=== PATIENT | male | born 1990 | race Caucasian/White ===

== ENCOUNTER 2016-11-19 16:50 | Inpatient (IN) | payer BC, OTHER ==
[~2016-11-19] VITALS: Ht 180.3 cm; Wt 62.6 kg
[2016-11-19] MEDS ORDERED: ACETAMINOPHEN 325 MG TABLET PO PRN (17:30)
[2016-11-19] MEDS ORDERED: DICYCLOMINE HCL 20 MG TABLET PO PRN (17:30)
[2016-11-19] MEDS ORDERED: ONDANSETRON 4 MG/2 ML VIAL IM PRN (17:30)
[2016-11-19] MEDS ORDERED: MAGNESIUM HYDROXIDE 30 ML LIQUID UDC PO PRN (17:30)
[2016-11-19] MEDS ORDERED: MIRALAX 17 GM POWD.PACK PO PRN (17:30)
[2016-11-19] MEDS ORDERED: IBUPROFEN 400 MG TABLET PO PRN (17:30)
[2016-11-19] MEDS ORDERED: LOPERAMIDE HCL 2 MG CAPSULE PO PRN ×2 (17:30)
[2016-11-19] MEDS ORDERED: MAG HYDROX/AL HYDROX/SIMETH 30 ML LIQUID UDC PO PRN (17:30)
[2016-11-19] MEDS ORDERED: LORAZEPAM 1 MG TABLET PO PRN ×2 (17:30)
[2016-11-19] MEDS ORDERED: LORAZEPAM 2 MG/1 ML VIAL IM PRN (17:30)
[2016-11-19] MEDS ORDERED: CLONIDINE HCL 0.1 MG TABLET PO PRN (17:30)
[2016-11-19 18:00] VITALS: BP 119/74
[2016-11-19] MEDS ORDERED: THIAMINE HCL 200 MG/2 ML VIAL IM ONE (18:00)
--- NOTE | 2016-11-19 18:00 | NUR ---
ADMISSION Pt 26 y/o male admitted for etoh dependence. Pt lives at home with family. Pt alert and oriented to name, place, and time. Perrla. Skin warm and moist to touch. Respirations even and unlabored. Bilateral hand tremors noted. Pt appears with flushed face. Pt anxious during assessment. Pt was seen by Dr. Monzon and will start on a 5 day ativan taper on 11/20/16. Pt with initial ciwa=6. pt states this is his first time in detox and has never been to a treatment center. Pt states has no PCP. Oriented pt to room and unit. Bed on lowest position with side rails x2 up for safety. Call light within reach. substance hx: etoh ( beer) oral and has 6-12 bottles daily x 2.5 years. Last drink was 6 bottles this morning on 11/19/16 medical hx: Pt denies any sz history; appendicitis 2001 tx hx: Pt states this is his first time being in detox and has never been to a treatment center. Addendum: 11/19/16 at 1907 by HERNANDEZ CAICEDO RN skin clear.
[2016-11-19] MEDS: ONDANSETRON ODT 4 MG TAB.RAPDIS SL PRN (18:18)
--- NOTE | 2016-11-19 18:18 | NUR ---
PRN Pt states he feels nauseous. Zofran po prn per MD order given and tolerated well.
--- NOTE | 2016-11-19 18:18 | NUR ---
PRN Pt with ciwa=6. Ativan 1mg po prn per MD order given and tolerated well.
--- NOTE | 2016-11-19 19:17 | NUR ---
PRN EVAL ciwa=2. Pt observed in room on bed awake. No distress noted at this time.
--- NOTE | 2016-11-19 19:18 | NUR ---
PRN EVAL Pt states denies any nausea at this time.
--- NOTE | 2016-11-19 19:30 | NUR ---
START OF SHIFT Pt 26 y/o male admitted for ETOH dependency. Pt is A/O X 4.Skin is intact,warm and moist to touch. Allergic to Sulfa; full code; regular diet. Respirations even and unlabored. Pt was seen by Dr. Monzon and will start on a 5 day Ativan taper on 11/20/16. Last CIWA 2. All needs met. Bed on lowest position and locked,with side rails x2 up for safety. Call light within reach. Will continue to monitor.
[2016-11-19 19:54] LABS: *AMPHETAMINE, URINE NEGATIVE (NEGATIVE); *BARBITURATE, URINE NEGATIVE (NEGATIVE); *CANNABINOID, URINE NEGATIVE (NEGATIVE); *COCCAINE, URINE NEGATIVE (NEGATIVE); *OPIATE, URINE NEGATIVE (NEGATIVE); *PHENCYCLIDINE SCREEN,URINE NEGATIVE (NEGATIVE)
[2016-11-19 22:28] LABS: BASOPHILS % (AUTO) 0.5 % (0.0-2.0); EOSINOPHILS # (AUTO) 0.2 K/uL (0.0-0.7); EOSINOPHILS % (AUTO) 3.3 % (0.0-7.0); HEMATOCRIT 45.3 % (40-50); HEMOGLOBIN 15.4 G/DL (14.0-18.0); LYMPHOCYTES # (AUTO) 2.4 K/UL (0.8-4.8); MEAN CORPUSCULAR HEMOGLOBIN 32.3 UUG (27.0-31.0); MEAN CORPUSCULAR HGB CONC 34 g/dL (32.0-37.0); MEAN CORPUSCULAR VOLUME 95.2 FL (82.0-92.0); MONOCYTES # (AUTO) 0.6 K/UL (0.1-1.30); MONOCYTES % (AUTO) 9.3 % (0.0-11.0); NEUTROPHILS # (AUTO) 3.8 K/UL (1.8-8.9); NEUTROPHILS % (AUTO) 52.9 % (38.5-71.5); PLATELET COUNT (AUTO) 232 K/UL (150-450); RED BLOOD CELL COUNT(AUTO) 4.76 MIL/UL (4.7-6.1)
[2016-11-19 22:34] LABS: ETHANOL < 3 MG/DL (0-0)
[2016-11-19 22:38] LABS: ALANINE AMINOTRANSFERASE 17 U/L (16-63); ALKALINE PHOSPHATASE 66 U/L (50-136); AMYLASE 41 U/L (25-115); ASPARTATE AMINOTRANSFERASE 21 U/L (15-37); BILIRUBIN,TOTAL 0.6 mg/dL (0.2-1.0); CARBON DIOXIDE 34 mmol/L (21-32); CHLORIDE 100 mmol/L (98-107); CREATININE 1.1 mg/dL (0.6-1.3); GLUCOSE 84 mg/dL (74-106); LIPASE 188 U/L (73-393); POTASSIUM 4.8 mmol/L (3.5-5.1); TOTAL PROTEIN, SERUM 7.1 g/dL (6.4-8.2); UREA NITROGEN, BLOOD 16 mg/dL (7-18)
[2016-11-19 22:58] LABS: THYROID STIMULATING HORMONE 5.449 mIU/mL (0.358-3.740)
[2016-11-20] VITALS: BP 119/75
[2016-11-20 04:00] VITALS: BP 122/63
--- NOTE | 2016-11-20 06:50 | NUR ---
END OF SHIFT Pt 26 y/o male admitted for Etoh dependency. Pt is A/O X 4.Skin is intact,warm and moist to touch. Allergic to Sulfa; full code; regular diet. Respirations even and unlabored. Pt was seen by Dr. Monzon and will start on a 5 day Ativan taper on 11/20/16. Last CIWA 1.No PRN meds given.Pt slept 8 hrs; fluid intake was 500 mls,voided x 2. Bed on lowest position with side rails x2 up for safety. Call light within reach. Will continue to monitor
--- NOTE | 2016-11-20 07:03 | NUR ---
Start of Shift Notes: Received patient in his room. Alert and oriented x 4. Able to make his needs known. Respirations even and unlabored. No SOB noted. Skin warm and dry to touch. Abdomen soft and non-distended with (+) BS in all 4 quadrants. No complains of N/V/D or constipation noted. Bladder non-distended. No complains of dysuria noted. Voids independently. Ambulatory ad papo with steady gait. Patient is a 26 year old male admitted for ETOH dependence who was placed on a 5-day Ativan taper as ordered which will be starting today. Has past medical hx of appendicitis. Allergic to sulfa and apples. FULL CODE. Regular diet. On fall and seizure precautions. Educated patient on his current plan of care and his medication regimen. Encouraged oral fluid intake and encouraged group participation to learn new skills to prevent relapse. Will continue to monitor closely.
[2016-11-20 08:00] VITALS: BP 147/78
[2016-11-20] MEDS: LORAZEPAM 1 MG TABLET PO SCH ×4 (08:38→20:46)
[2016-11-20] MEDS: ONDANSETRON ODT 4 MG TAB.RAPDIS SL PRN (08:38)
[2016-11-20] MEDS: THIAMINE HCL 100 MG TABLET PO SCH (08:38)
[2016-11-20] MEDS: MULTIVITAMINS,THERAPEUTIC TABLET PO SCH (08:38)
[2016-11-20] MEDS: FOLIC ACID 1 MG TABLET PO SCH (08:38)
--- NOTE | 2016-11-20 08:38 | NUR ---
Zofran 4 mg ODT given: Patient noted with complain of intermittent nausea. CIWA 12. Medicate patient with Zofran 4 mg ODT as ordered. 1st dose of taper initiated at this time.
[2016-11-20] MEDS ORDERED: TUBERCULIN,PURIF.PROT.DERIV. 5 TU/0.1 ML TEST ID ONE (09:00)
--- NOTE | 2016-11-20 09:38 | NUR ---
Re-assessment: Per patient, PRN Zofran was effective in relieving nausea.
--- NOTE | 2016-11-20 10:51 | NUR ---
Zofran 4 mg IM given: Patient noted with complain of intermittent nausea with dry heaving after administration of Zofran 4 mg ODT. Per , OK to give patient IM Zofran 4 mg. Will monitor for effectiveness.
--- NOTE | 2016-11-20 11:21 | NUR ---
Re-assessment: Per patient, Zofran 4 mg IM was effective in reducing nausea.
--- NOTE | 2016-11-20 11:21 | NUR ---
Re-assessment: Per patient, PRN Zofran IM was effective in reducing patient's nausea.
[2016-11-20 12:00] VITALS: BP 103/67
--- NOTE | 2016-11-20 15:32 | NUR ---
Therapist encouraged client to participate in daily group therapy, and explained some of the benefits and discussed the times of group. Client stated he would see how he was feeling.
[2016-11-20 16:00] VITALS: BP 140/70
--- NOTE | 2016-11-20 18:42 | NUR ---
End of Shift Notes: Patient is a 26 year old male admitted for ETOH dependence who was placed on a 5-day Ativan taper as ordered. No adverse reactions noted. First dose of taper was initiated today at 0900. Tolerated well. Has past medical hx ofappendicitis, Prior to admission, patient was using 6-12 bottles of beer every for the past 2.5 years. VS monitored closely. No significant abnormalities noted. Withdrawal symptoms were closely monitored. Patient presented with nausea, anxiety, fine tremors, facial flushing, chills, and hot flashes. Initial CIWA 12, Last CIWA 4. Per patient, Ativan has been helping him with his withdrawal symptoms. Patient was medicated with Zofran 4 mg ODT at 0938 with help after 1 hour, then at 1051, patient was again medicated with Zofran 4 mg IM as per MD Aggarwal order with help after 1 hour. Compliant with care and treatment. Participated in group. Encouraged to socialize with his peers. Oral fluids encouraged. All needs met and attended. Consumed 100% of each meal, intake 1210cc, void x 2 and BM x 1. Will continue to monitor closely.
[2016-11-20 20:00] VITALS: BP 120/83
--- NOTE | 2016-11-20 20:00 | NUR ---
Start of Shift Note: Report received from day shift nurse. Pt is a 26yo male admitted on 11/19/16 for medically-supervised withdrawal from ETOH. Pt reports drinking 6-12 bottles beer daily for 2.5 years. Pt is on a 5-day Ativan taper. Pt received with last CIWA=4, and PRN Zofran PO and IM were given during day shift. Pt reports allergy to sulfa and apples, full code status, and is on a regular diet. Pt reports PMHx: appendicitis (2001). Pt received in room, noted with flushed face, and reports tremor, diaphoresis, anxiety and headache. Bed is in low position and locked, side rails up x2, call light within reach. Will continue to monitor.
[2016-11-20] MEDS: diphenhydrAMINE 50 MG CAPSULE PO PRN (20:46)
--- NOTE | 2016-11-20 20:47 | NUR ---
PRN Benadryl: Patient complains of inability to sleep. Administered PRN Benadryl as ordered. Will continue to monitor. Addendum: 11/21/16 at 0651 by CHANA CARRANZA RN Medication re-assessed at end of shift.
[2016-11-21] VITALS: BP 116/66
--- NOTE | 2016-11-21 | NUR ---
CIWA Deferred: CIWA deferred for sleep. V/S stable. All safety precautions are in place. Will continue to monitor. Addendum: 11/21/16 at 0223 by CHANA CARRANZA RN Amended: Links added.
[2016-11-21 04:00] VITALS: BP 117/78
--- NOTE | 2016-11-21 04:00 | NUR ---
CIWA Deferred: CIWA assessment deferred for sleep. V/S stable. All safety precautions are in place. Will continue to monitor. Addendum: 11/21/16 at 0521 by CHANA CARRANZA RN Amended: Links added.
--- NOTE | 2016-11-21 06:51 | NUR ---
End of Shift Note: Pt is a 26yo male admitted to [facility] on 11/19/16 for medically-supervised withdrawal from ETOH. Pt reports PMHx: appendicitis (2001). Pt reports allergy to sulfa and apples. Pt is full code status. Pt is on a regular diet. Pt reports drinking 6-12 bottles beer daily for 2.5 years. Pt continues on a 5-day Ativan taper. Scheduled medication regime effectively managed s/s of withdrawal this shift. Last CIWA=6 at 20:00. V/S stable throughout shift. PRN Benadryl was given for inability to sleep, which was effective as pt slept 8 hours. Total fluid intake this shift: 355 ml; output: urine x 2 and BM x 0. Pt is currently in bed, all needs have been attended and met. Pt endorsed to day shift nurse.
--- NOTE | 2016-11-21 07:05 | NUR ---
Start of Shift Notes: Received patient in his room. Alert and oriented x 4. Able to make his needs known. Respirations even and unlabored. No SOB noted. Skin warm and dry to touch. Abdomen soft and non-distended with (+) BS in all 4 quadrants. No complains of N/V/D or constipation noted. Bladder non-distended. No complains of dysuria noted. Voids independently. Ambulatory ad papo with steady gait. Patient is a 26 year old male admitted for ETOH dependence who was placed on a 5-day Ativan taper. No adverse reactions noted. Has past medical hx of appendicitis. Allergic to sulfa and apples. FULL CODE. Regular diet. On fall and seizure precautions. Educated patient on his current plan of care and his medication regimen. Encouraged oral fluid intake and encouraged group participation to learn new skills to prevent relapse. Will continue to monitor closely.
[2016-11-21 08:00] VITALS: BP 127/78
[2016-11-21 08:11] LABS: HEPATITIS B SURFACE AG Negative (Negative)
[2016-11-21] MEDS: FOLIC ACID 1 MG TABLET PO SCH (08:52)
[2016-11-21] MEDS: MULTIVITAMINS,THERAPEUTIC TABLET PO SCH (08:52)
[2016-11-21] MEDS: THIAMINE HCL 100 MG TABLET PO SCH (08:52)
[2016-11-21] MEDS ORDERED: LORAZEPAM 1 MG TABLET PO SCH (09:00)
[2016-11-21 12:00] VITALS: BP 121/81
[2016-11-21] MEDS: LORAZEPAM 1 MG TABLET PO SCH ×3 (12:42→20:50)
--- NOTE | 2016-11-21 12:46 | NUR ---
Taper modified: Patient's taper was modified by MD Monzon as ordered. Patient will be receiving Ativan 1 mg PO QID today.
[2016-11-21 16:00] VITALS: BP 100/56
--- NOTE | 2016-11-21 16:53 | NUR ---
Client was encouraged by therapist to participate in daily psychotherapy group sessions. Client related that he would try to attend the next meeting.
--- NOTE | 2016-11-21 18:49 | NUR ---
End of Shift Notes: Patient is a 26 year old male admitted for ETOH dependence who was placed on a modified 4-day Ativan taper as ordered. No adverse reactions noted. Tolerated well. Has past medical hx ofappendicitis, Prior to admission, patient was using 6-12 bottles of beer every for the past 2.5 years. VS monitored closely. No significant abnormalities noted. Withdrawal symptoms were closely monitored. Patient presented with anxiety, fine tremors, facial flushing, chills, and hot flashes. Initial CIWA 6, Last CIWA 3. Per patient, Ativan has been helping him with his withdrawal symptoms. Taper was modified by MD today. Compliant with care and treatment. Participated in group. Encouraged to socialize with his peers. Oral fluids encouraged. All needs met and attended. Will continue to monitor closely.
[2016-11-21 20:00] VITALS: BP 108/62
--- NOTE | 2016-11-21 20:00 | NUR ---
Start of Shift Note: Report received from day shift nurse. Pt is a 26 Y/O male admitted on 11/19/16 for medically-supervised withdrawal from ETOH, and reported drinking 6-12 bottles beer daily for 2.5 years. Pt is on a 4-day Ativan taper. Pt received with last CIWA=3, and no PRN medications were given during day shift. Pt reports allergy to sulfa and apples. Pt is full code status. Pt is on a regular diet. Pt reports PMHx: appendicitis (2001). Pt received in room, and reports tremor and anxiety. Bed is in low position and locked, side rails up x2, call light within reach. Will continue to monitor.
[2016-11-21] MEDS: diphenhydrAMINE 50 MG CAPSULE PO PRN (20:50)
--- NOTE | 2016-11-21 20:50 | NUR ---
PRN Benadryl: Patient complains of inability to sleep. Administered PRN Benadryl as ordered. Will continue to monitor.
--- NOTE | 2016-11-21 21:50 | NUR ---
PRN Reassessment: Patient is in bed with eyes closed. Respirations are even and unlabored. No s/s of acute distress noted. PRN Benadryl effective. Will continue to monitor.
[2016-11-22] VITALS: BP 122/61
--- NOTE | 2016-11-22 | NUR ---
CIWA Deferred: CIWA deferred for sleep. V/S stable. All safety precautions are in place. Will continue to monitor. Addendum: 11/22/16 at 0200 by CHANA CARRANZA RN Amended: Links added.
[2016-11-22 04:00] VITALS: BP 97/64
--- NOTE | 2016-11-22 04:00 | NUR ---
EDYTA Deferred: CIWA deferred for sleep, V/S stable. Bed in lowest position, side rails up x2, call light within reach. Will continue to monitor. Addendum: 11/22/16 at 0535 by CHANA CARRANZA RN Amended: Links added.
--- NOTE | 2016-11-22 07:13 | NUR ---
End of Shift Note: Pt is a 26 Y/O male admitted to [facility] on 11/19/16 for medically-supervised withdrawal from ETOH. PMHx: appendicitis (2001). Full code, allergy to sulfa and apples, regular diet. Pt reports drinking 6-12 beers daily for 2.5 years. Pt continues on a 4-day Ativan taper. Scheduled medication regime effectively managed s/s of withdrawal this shift. Last CIWA=2 at 20:00. V/S stable throughout shift. Total fluid intake this shift: 1047 ml; output: urine x 2 and BM x 0. PRN Benadryl was given for inability to sleep, which was effective as pt slept 8 hours. Pt is currently in bed, all needs have been attended and met. Pt endorsed to day shift nurse.
--- NOTE | 2016-11-22 07:14 | NUR ---
Start of Shift Notes: Received patient in his room. Alert and oriented x 4. Able to make his needs known. Respirations even and unlabored. No SOB noted. Skin warm and dry to touch. Abdomen soft and non-distended with (+) BS in all 4 quadrants. No complains of N/V/D or constipation noted. Bladder non-distended. No complains of dysuria noted. Voids independently. Ambulatory ad papo with steady gait. Patient is a 26 year old male admitted for ETOH dependence who was placed on a 5-day Ativan taper. No adverse reactions noted. Has past medical hx of appendicitis. Allergic to sulfa and apples. FULL CODE. Regular diet. On fall and seizure precautions. PRN Benadryl was given during the night. Last CIWA 2. Slept for 8 hours. Educated patient on his current plan of care and his medication regimen. Encouraged oral fluid intake and encouraged group participation to learn new skills to prevent relapse. Will continue to monitor closely.
[2016-11-22 08:00] VITALS: BP 100/57
[2016-11-22] MEDS: FOLIC ACID 1 MG TABLET PO SCH (08:48)
[2016-11-22] MEDS: MULTIVITAMINS,THERAPEUTIC TABLET PO SCH (08:48)
[2016-11-22] MEDS: LORAZEPAM 1 MG TABLET PO SCH ×3 (08:48→20:58)
[2016-11-22] MEDS: THIAMINE HCL 100 MG TABLET PO SCH (08:48)
[2016-11-22] MEDS ORDERED: LORAZEPAM 1 MG TABLET PO SCH (09:00)
[2016-11-22 12:00] VITALS: BP 117/75
--- NOTE | 2016-11-22 13:00 | NUR ---
Mid Shift Notes: Patient is in his room. Encouraged to go to group to socialize with his peers. CIWA 3. Compliant with meds and treatment.
[2016-11-22 16:00] VITALS: BP 130/87
--- NOTE | 2016-11-22 18:54 | NUR ---
End of Shift Notes: Patient is a 26 year old male admitted for ETOH dependence who was placed on a modified 4-day Ativan taper as ordered. No adverse reactions noted. Tolerated well. Has past medical hx ofappendicitis, Prior to admission, patient was using 6-12 bottles of beer every for the past 2.5 years. VS monitored closely. No significant abnormalities noted. Withdrawal symptoms were closely monitored. Patient presented with anxiety, fine tremors, facial flushing and mild sweats. Initial CIWA 5 Last CIWA 3. Per patient, Ativan has been helping him with his withdrawal symptoms. Taper was modified by MD today. Compliant with care and treatment. Participated in group. Encouraged to socialize with his peers. Oral fluids encouraged. All needs met and attended. Will continue to monitor closely.
[2016-11-22 20:00] VITALS: BP 132/88
--- NOTE | 2016-11-22 20:00 | NUR ---
Start of Shift Note: Report received from day shift nurse. Pt is a 26M admitted for medically-supervised withdrawal from ETOH on 11/19/16. Pt reports drinking 6-12 beers daily for 2.5 years. Pt continues on an Ativan taper. Day shift nurse reports that no PRN medications were necessary, and last CIWA=3. Full code, regular diet, allergy to sulfa and apples. Pt reports PMHx: appendicitis (2001). Pt received in room, and reports nausea, anxiety, and generalized body aches. Bed is in low position and locked, side rails up x2, call light within reach. Will continue to monitor.
[2016-11-22] MEDS: diphenhydrAMINE 50 MG CAPSULE PO PRN (20:58)
[2016-11-22] MEDS: ONDANSETRON ODT 4 MG TAB.RAPDIS SL PRN (20:59)
--- NOTE | 2016-11-22 20:59 | NUR ---
PRN's Benadryl, Zofran ODT, and Motrin: Patient complains of inability to sleep. Administered PRN Benadryl as ordered. Patient complains of nausea, denies emesis episodes. Administered PRN Zofran ODT as ordered. Patient complains of generalized body pain, rates pain 4/10. Administered PRN Motrin as ordered. Will continue to monitor.
--- NOTE | 2016-11-22 21:30 | NUR ---
PRN Reassessment: Patient denies nausea at this time. PRN Zofran ODT effective.
--- NOTE | 2016-11-22 22:00 | NUR ---
PRN Reassessment: Patient is in bed with eyes closed. Respirations are even and unlabored. No s/s of acute distress noted. PRN Motrin and PRN Benadryl effective AEB pt's ability to rest. Will continue to monitor.
[2016-11-23] VITALS: BP 119/73
[2016-11-23 04:00] VITALS: BP 104/59
--- NOTE | 2016-11-23 04:00 | NUR ---
CIWA Deferred: CIWA deferred for sleep. V/S stable. All safety precautions are in place. Will continue to monitor. Addendum: 11/23/16 at 0556 by CHANA CARRANZA RN Amended: Links added.
--- NOTE | 2016-11-23 07:13 | NUR ---
End of Shift Note: Pt is a 26yo male admitted to [facility] on 11/19/16 for medically-supervised withdrawal from ETOH. Pt reports PMHx of appendicitis (2001). Pt reports allergy to sulfa and apples. Pt is on a regular diet. Pt is a full code. Pt reported drinking 6-12 beers/day for 2.5 years. Pt is to start day four of a 4-day Ativan taper. Scheduled medication regime effectively managed s/s of withdrawal this shift, in addition to PRN Zofran for nausea and PRN Motrin for pain. Last CIWA=4 at 20:00. V/S stable throughout shift with tachycardia (93 at 20:00). Total fluid intake this shift: 855 ml; output: urine x 3 and BM x 0. PRN Benadryl was given for inability to sleep, which was effective as pt slept 8 hours. Pt is currently in bed, all needs have been attended and met. Pt endorsed to day shift nurse.
--- NOTE | 2016-11-23 07:53 | NUR ---
START OF SHIFT Pt 26 y/o male admitted for etoh dependence. Pt received in room on bed awake. Pt alert and oriented to name, place, and time. Perrla. Skin warm and dry to touch. Respirations even and unlabored. Bilateral hand tremors noted slightly. It was reported that pt slept for 8 hours last night. Bed on lowest position with side rails x2 up for safety. Call light within reach. No distress noted at this time.
[2016-11-23 08:00] VITALS: BP 126/77
[2016-11-23] MEDS: THIAMINE HCL 100 MG TABLET PO SCH (08:44)
[2016-11-23] MEDS: FOLIC ACID 1 MG TABLET PO SCH (08:44)
[2016-11-23] MEDS: LORAZEPAM 1 MG TABLET PO SCH ×2 (08:45→21:11)
[2016-11-23] MEDS: MULTIVITAMINS,THERAPEUTIC TABLET PO SCH (08:45)
[2016-11-23] MEDS ORDERED: LORAZEPAM 1 MG TABLET PO SCH (09:00)
--- NOTE | 2016-11-23 11:00 | NUR ---
NSG ENTRY Pt observed in room on bed watching television. No distress noted at this time.
[2016-11-23 12:00] VITALS: BP 111/77
[2016-11-23 16:00] VITALS: BP 125/66
--- NOTE | 2016-11-23 18:21 | NUR ---
END OF SHIFT Pt 26 y/o male admitted for etoh dependence. Pt alert and oriented to name, place, and time. Perrla. Skin warm and dry to touch. Respirations even and unlabored. Bilateral hand tremors noted slightly. Pt observed mostly in room , but did attend group activity. Pt was seen by Dr. Monzon today. Pt medication compliant and tolerated well. No ASE noted. Bed on lowest position with side rails x2 up for safety. Call light within reach. No distress noted at this time.
[2016-11-23 20:00] VITALS: BP 127/79
[2016-11-23] MEDS: diphenhydrAMINE 50 MG CAPSULE PO PRN (21:11)
[2016-11-23] MEDS: ONDANSETRON ODT 4 MG TAB.RAPDIS SL PRN (21:12)
--- NOTE | 2016-11-23 21:12 | NUR ---
PRN Benadryl and Zofran administration Pt c/o nausea without vomiting and inability to sleep. PRN Benadryl and Zofran administered.
--- NOTE | 2016-11-23 22:12 | NUR ---
PRN Zofran and Benadryl reassessment PRN Zofran effective. Pt reports relief of nausea. PRN Benadryl effective. Pt reports feeling as if is ready to fall asleep.
[2016-11-24] VITALS: BP 121/68
--- NOTE | 2016-11-24 04:00 | NUR ---
0400 Vitals refused. CIWA and COWS deferred. Pt refused to be woken for 0400 Vitals. Respirations even and unlabored. CIWA and COWS ordered Q4HWA. Safety measures in place. Addendum: 11/24/16 at 0438 by HALIE ANTONIO RN CIWA only deferred.
--- NOTE | 2016-11-24 07:09 | NUR ---
END OF SHIFT Report provided to day [facility] nurse. Pt is lying in bed resting. He is a 26 yo male admitted to [facility] on 11/19 for ETOH dependence. He is A&O x4 and ambulatory. Allergies to sulfa and apple, full code status, and on a regular diet. He has a PMH of appendicitis. On admission he reported drinking 6-12 12oz bottles of beers per day. He started a modified Ativan taper on 11/20. Pt is compliant with treatment. PRN Benadryl and Zofran administered. He drank 900 and slept 7 hours. Fall and seizure precautions in place. Bed is down with call light in reach.
[2016-11-24 08:00] VITALS: BP 108/74
--- NOTE | 2016-11-24 08:03 | NUR ---
START OF SHIFT Pt 26 y/o male admitted for etoh dependence. Pt received in room on bed awake. Pt alert and oriented to name, place, and time. Perrla. Skin warm and dry to touch. Respirations even and unlabored. Bilateral hand tremors noted slightly. It was reported that pt slept for 7 hours last night. Bed on lowest position with side rails x2 up for safety. Call light within reach. No distress noted at this time.
[2016-11-24] MEDS: MULTIVITAMINS,THERAPEUTIC TABLET PO SCH (08:33)
[2016-11-24] MEDS: FOLIC ACID 1 MG TABLET PO SCH (08:33)
[2016-11-24] MEDS: THIAMINE HCL 100 MG TABLET PO SCH (08:33)
[2016-11-24] MEDS ORDERED: LORAZEPAM 1 MG TABLET PO SCH (09:00)
--- NOTE | 2016-11-24 11:00 | NUR ---
NSG ENTRY Pt observed in room watching television. No distress noted at this time.
[2016-11-24 12:00] VITALS: BP 118/73
[2016-11-24 16:00] VITALS: BP 109/67
--- NOTE | 2016-11-24 17:30 | NUR ---
NSG ENTRY Pt reminded of UDS that needs to be collected. Pt acknowledged.
--- NOTE | 2016-11-24 18:00 | NUR ---
NSG ENTRY Pt stated he already voided and forgot to get staff to collect for UDS.
[2016-11-24] MEDS ORDERED: DIPH50CA37 PO (18:01)
[2016-11-24] MEDS ORDERED: IBUP-1481 PO (18:01)
[2016-11-24] MEDS ORDERED: ONDA4TAB11 SL (18:01)
--- NOTE | 2016-11-24 18:06 | NUR ---
END OF SHIFT Pt 26 y/o male admitted for etoh dependence. Pt alert and oriented to name, place, and time. Perrla. Skin warm and dry to touch. Respirations even and unlabored. Pt observed mostly isolative in room , but did attend group activity. Pt was seen by Dr. Monzon today. Pt medication compliant and tolerated well. No ASE noted. Pt is scheduled to be discharged tomorrow. Bed on lowest position with side rails x2 up for safety. Call light within reach. No distress noted at this time.
[2016-11-24 18:29] LABS: *AMPHETAMINE, URINE NEGATIVE (NEGATIVE); *BARBITURATE, URINE NEGATIVE (NEGATIVE); *CANNABINOID, URINE NEGATIVE (NEGATIVE); *COCCAINE, URINE NEGATIVE (NEGATIVE); *OPIATE, URINE NEGATIVE (NEGATIVE); *PHENCYCLIDINE SCREEN,URINE NEGATIVE (NEGATIVE)
--- NOTE | 2016-11-24 19:15 | NUR ---
START OF SHIFT Received 26 year old male patient admitted on 11/19/16 for ETOH dependency. Pt is full code with allergy to sulfa and apples. Pt reports a PMHx of appendicitis in (2001). He reports drinking ETOH 6-12 (12 oz) beers daily for 2.5 years. Last dose was 6 bottles on 11/19/16. Pt placed on 4 day Ativan taper started on 11/21/16. Pt completed his taper and tolerated well. He is scheduled to be DC tomorrow (11/25/16) to [facility]. Per endorsement, he did not receive or request PRN medications. Pt is alert and oriented x4, breathing is even and unlabored. Safety measures in place. Will continue to monitor.
[2016-11-24 20:00] VITALS: BP 116/80
[2016-11-24] MEDS: diphenhydrAMINE 50 MG CAPSULE PO PRN (21:10)
--- NOTE | 2016-11-24 21:10 | NUR ---
PRN BENADRYL Pt complains of inability to fall asleep. PRN Benadryl administered as ordered. Breathing is even and unlabored, safety measures in place. Will continue to monitor effectiveness.
--- NOTE | 2016-11-24 22:10 | NUR ---
PRN BENADRYL REASSESSMENT PRN medication effective. Pt is lying in bed with eyes closed noted to be asleep. Respirations 16, breathing is even and unlabored. No facial grimacing. Safety measures in place. Will continue to monitor.
[2016-11-25] VITALS: BP 112/76
--- NOTE | 2016-11-25 04:00 | NUR ---
VITALS/CIWA 0400 vitals refused by pt. CIWA deferred d/t pt lying in bed with eyes closed noted to be asleep. Respirations 16, breathing is even and unlabored. Safety measures in place. Will continue to monitor.
--- NOTE | 2016-11-25 07:09 | NUR ---
END OF SHIFT Pt is a 26 year old male patient admitted on 11/19/16 for ETOH dependency. Pt is full code with allergy to sulfa and apples. Pt reports a PMHx of appendicitis in (2001). Pt received 4 day Ativan taper started on 11/21/16. Pt completed his taper and tolerated well. He is scheduled to be DC today (11/25/16) to [facility]. At 2110 he received PRN Benadryl. He slept a total of 6 hrs, Intake:1091mL Void:x2 BM:0 CIWA:1. Pt remains alert and oriented x4, breathing is even and unlabored. Safety measures in place. Will endorse to oncoming shift.
--- NOTE | 2016-11-25 07:30 | NUR ---
start of shift note: received pt from [facility] specialist nurse, pt is in stable condition at this time no s/s of pain or discomfort. pt is admitted to [facility] for ETOH withdrawal/dependence.will assist pt in discharging and will continue to monitor pt for any changes. pts last ciwa 1 and slept for 6 hrs.
[2016-11-25] MEDS: FOLIC ACID 1 MG TABLET PO SCH (08:53)
[2016-11-25] MEDS: THIAMINE HCL 100 MG TABLET PO SCH (08:53)
[2016-11-25] MEDS: MULTIVITAMINS,THERAPEUTIC TABLET PO SCH (08:53)
--- NOTE | 2016-11-25 09:10 | NUR ---
end of shift note: pt left the unit in stable condition, no s/s of withdrawal/discomfort or any pain. pt teaching was administered and pt verbalized understanding. pt's personal belongings were given back, pt will be transferred to able to change via private car. pt's V/s WNL.
== END 2016-11-25 09:10 | disposition other institution (70) | DRG 895 ==
LOC: SRC 17:10
PROVIDERS: ADMIT Internal Medicine; ATTEND Internal Medicine
PROC: HZ2ZZZZ Detoxification Services for Substance Abuse Treatment (ICD-10-PCS; principal; 2016-11-19)
PROC: HZ41ZZZ Group Counseling for Substance Abuse Treatment, Behavioral (ICD-10-PCS; 2016-11-21)
DX: F10.230 Alcohol dependence with withdrawal, uncomplicated (principal); E87.3 Alkalosis; Y90.9 Presence of alcohol in blood, level not specified; Z88.2 Allergy status to sulfonamides; F41.9 Anxiety disorder, unspecified; F17.210 Nicotine dependence, cigarettes, uncomplicated; I15.9 Secondary hypertension, unspecified; E86.0 Dehydration; D75.89 Other specified diseases of blood and blood-forming organs; E07.81 Sick-euthyroid syndrome; Z81.1 Family history of alcohol abuse and dependence; Z82.49 Family history of ischemic heart disease and other diseases of the circulatory system; Z81.8 Family history of other mental and behavioral disorders
CPT/HCPCS: 36415; 70030-TC; 80307; 83690; 83735; 84443; 85025; 86580; 86592; 86705; 86803; 87340; 87806; G0480; J2405; Q0162; Q0163